=== PATIENT | male | born 2005 ===

== ENCOUNTER 2024-12-19 01:56 | Emergency (ER) | payer BC, SELFPAY ==
--- NOTE | 2024-12-19 02:01 | ED.GENADULT ---
HPI - General Adult General Chief complaint: Seizure Stated complaint: Unknown Time Seen by Provider: 12/19/24 01:57 History of Present Illness HPI narrative: 19-year-old male presents emergency department for evaluation for suspected seizure. Family states the patient does have a seizure history but does not take medications for this. They states the seizures are typically secondary to stressful events. Patient was at a gas station in [place] some in walked in doing open carry with large weapons and patient's brother feels that this was a stress for situation and they were talking with the patient then started having a seizure. Patient was brought to the emergency department for evaluation upon evaluation patient was alert appropriate and patient declined any medical workup at this time. Review of Systems Review of Systems: All systems reviewed & are unremarkable except as noted in HPI and below Exam Narrative: APPEARANCE: Well appearing, no pain, no distress, well-nourished. HEAD: normocephalic, atraumatic. EYES: PERRLA/EOMI, conjunctivae clear. NOSE: Normal no drainage EARS:TMS clear with good light reflex. THROAT: Pharynx clear, no exudate. NECK: Supple. No adenopathy, no masses. RESPIRATORY: Airway patent, respirations nonlabored. Clear to auscultation bilaterally, no rales, rhonchi, wheezing. CARDIOVASCULAR: Regular rate and rhythm without murmurs rubs or gallops. ABDOMINAL: Soft, nontender, nondistended, normal bowel sounds MUSCULOSKELETAL: Moves all extremities. Strength/ROM intact, No edema, No calf tenderness. NEURO: Alert. Cranial nerves II through XII intact. Good gait. Good coordination SKIN: Warm, dry. Normal Color Course Vital Signs Vital signs: Vital Signs Temperature 98.2 F 12/19/24 02:20 Pulse Rate 105 H 12/19/24 02:20 Respiratory Rate 22 H 12/19/24 02:20 Blood Pressure 138/76 12/19/24 02:20 Pulse Oximetry 99 12/19/24 02:20 Oxygen Delivery Room Air 12/19/24 02:20 Temperature 98.2 F 12/19/24 02:54 Pulse Rate 105 H 12/19/24 02:54 Respiratory Rate 22 H 12/19/24 02:54 Blood Pressure 138/76 12/19/24 02:54 Pulse Oximetry 99 12/19/24 02:54 Oxygen Delivery Room Air 12/19/24 02:20 Medical Decision Making MDM Narrative Medical decision making narrative: Patient declined any medical workup and requested to be discharged home. Patient signed out AMA. Patient was alert and orientated at time of signing out AMA. Patient's family member was also comfortable with the patient's signing out. Differential Diagnosis Differential Diagnosis: Epileptic seizure, nonepileptic seizure, anxiety, altered mental status Vital Signs Vital Signs: Vital Signs Temperature 98.2 F 12/19/24 02:20 Pulse Rate 105 H 12/19/24 02:20 Respiratory Rate 22 H 12/19/24 02:20 Blood Pressure 138/76 12/19/24 02:20 Pulse Oximetry 99 12/19/24 02:20 Oxygen Delivery Room Air 12/19/24 02:20 Temperature 98.2 F 12/19/24 02:54 Pulse Rate 105 H 12/19/24 02:54 Respiratory Rate 22 H 12/19/24 02:54 Blood Pressure 138/76 12/19/24 02:54 Pulse Oximetry 99 12/19/24 02:54 Oxygen Delivery Room Air 12/19/24 02:20 Discharge Plan Discharge Clinical Impression: Seizure-like activity Patient Disposition: Left Against Medical Advice Condition: Stable Patient Language: Khmer Follow-up/Referrals: UNKNOWN,DOCTOR [Primary Care Provider] -
[2024-12-19 02:20] VITALS: BP 138/76; PULSE 105; RESP 22; TEMP 36.8; O2SAT 99
[2024-12-19 02:21] VITALS: PULSE 105
[2024-12-19 02:54] VITALS: BP 138/76; PULSE 105; RESP 22; TEMP 36.8; O2SAT 99
== END 2024-12-19 02:25 | disposition left against medical advice (07) ==
PROVIDERS: Emergency Provider Emergency Medicine
DX: R56.9 Unspecified convulsions (principal); Z53.29 Procedure and treatment not carried out because of patient's decision for other reasons
CPT/HCPCS: 99283